=== PATIENT | female | born 1960 | race Caucasian/White ===

== ENCOUNTER 2016-06-14 07:28 | Inpatient (IN) | payer MEDICAID ==
[~2016-06-14 07:28] MED LIST: NAPROSYN500 M1 PO
[2016-06-14 08:17] LABS: BASO % 0.5 % (0-2); EOS % 2.6 % (0-7); EOSINOPHIL ABSOLUTE COUNT 0.2 tho/cmm (0.0-0.7); HCT-HEMATOCRIT 39.1 % (34.0-49.0); HGB-HEMOGLOBIN 13.6 gm/dl (12.0-15.5); IMMATURE GRANULOCYTES ABSOLUTE 0.01 tho/cmm (0-0.03); IMMATURE GRANULOCYTES PERCENT 0.2 % (0-0.3); LYMPH % 27.7 % (20-45); LYMPH ABSOLUTE COUNT 1.6 tho/cmm (0.8-4.5); MCH (MEAN CORPUSCULAR HGB) 34.3 pg (28.0-32.0); MCHC MEAN CORPUSCULAR HGB CONC 34.8 % (32.0-36.0); MCV (MEAN CELL VOLUME) 98.5 fl (82.0-96.0); MEAN PLATELET VOLUME 8.8 cmc (9.4-12.4); MONOCYTE ABSOLUTE COUNT 0.6 tho/cmm (0.0-1.2); NEUTROPHIL ABSOLUTE COUNT 3.4 tho/cmm (1.6-8.0); NEUTROPHIL-AUTOMATED 3.4 tho/cmm (1.6-8.0); PLATELET COUNT 133 tho/cmm (150-450); RED BLOOD COUNT 3.97 mil/cmm (4.00-5.20); RED CELL DISTRIBUTION WIDTH 14.2 % (12.4-16.4); WHITE BLOOD COUNT 5.7 tho/cmm (4.0-10.0)
[2016-06-14 08:21] LABS: URINE BILIRUBIN NEGATIVE (NEG); URINE BLOOD LARGE (NEG); URINE GLUCOSE (UA) NEGATIVE (NEG); URINE KETONE NEGATIVE (NEG); URINE LEUKOCYTE ESTERASE NEGATIVE (NEG); URINE NITRITE NEGATIVE (NEG); URINE PROTEIN NEGATIVE (NEG)
[2016-06-14 08:23] LABS: INR 1.2 INR (0.9-1.1); PROTHROMBIN TIME 13.9 SECONDS (9.0-13.6)
[2016-06-14 08:26] LABS: URINE APPEARANCE CLEAR; URINE COLOR YELLOW
[2016-06-14 08:34] LABS: ALB/GLOB RATIO 0.7 (0.8-2.0); ALBUMIN 3.2 g/dl (3.5-5.0); ALCOHOL (ETOH) 199 mg/dl (<10); ALKALINE PHOSPHATASE 159 U/L (33-138); ALT/SGPT 59 U/L (12-78); BLOOD UREA NITROGEN 2 mg/dl (6-24); CALCIUM 7.9 mg/dl (8.5-10.5); CARBON DIOXIDE-VENOUS 23 mmol/L (22-32); CHLORIDE 104 mmol/l (96-110); CREATININE 0.61 mg/dl (0.50-1.10); GLUCOSE 101 mg/dL (70-110); SODIUM 138 mmol/L (135-145); eGFR VALUE FOR BLACK >90 mL/Min
[2016-06-14 08:35] LABS: URINE EPITHELIAL CELLS 0-3 /[HPF] (0-10); URINE WBC 0 /[HPF] (0-5)
[2016-06-14 08:37] LABS: ANION GAP 15 mmol/L (0-20); AST/SGOT 143 U/L (10-40); MAGNESIUM 1.7 mg/dl (1.3-2.6); POTASSIUM 3.8 mmol/L (3.7-5.1)
[2016-06-14] MEDS ORDERED: LAMICTAL100 M2 PO (08:40)
[2016-06-14] MEDS ORDERED: AMBIEN5 M1 PO (08:40)
[2016-06-14] MEDS ORDERED: NEURONTIN300 M1 PO (08:41)
[2016-06-14] MEDS ORDERED: ZOLOFT50 M1 PO (08:41)
[2016-06-14] MEDS ORDERED: RISPERIDONE2 M1 PO (08:41)
[2016-06-14] MEDS ORDERED: BUSPIRONE HCL10 M2 PO (08:42)
[2016-06-14 08:44] LABS: ESR-ERYTHROCYTE SED RATE 29 mm/hr (0-30)
[2016-06-15 07:26] LABS: ALB/GLOB RATIO 0.6 (0.8-2.0); ALBUMIN 2.8 g/dl (3.5-5.0); ALKALINE PHOSPHATASE 140 U/L (33-138); ALT/SGPT 46 U/L (12-78); ANION GAP 12 mmol/L (0-20); AST/SGOT 98 U/L (10-40); BILIRUBIN,TOTAL 1.4 mg/dl (0-1.5); BLOOD UREA NITROGEN 2 mg/dl (6-24); CALCIUM 7.6 mg/dl (8.5-10.5); CARBON DIOXIDE-VENOUS 25 mmol/L (22-32); CHLORIDE 105 mmol/l (96-110); CHOLESTEROL 146 mg/dl (120-200); CREATININE 0.64 mg/dl (0.50-1.10); GLUCOSE 117 mg/dL (70-110); HDL CHOLESTEROL 70 mg/dl (40-60); LDL CHOLESTEROL 67 mg/dl (0-99); POTASSIUM 3.2 mmol/L (3.7-5.1); SODIUM 139 mmol/L (135-145); TRIGLYCERIDES 46 mg/dl (<149); VLDL 9 mg/dl (0-30); eGFR VALUE FOR BLACK >90 mL/Min
[2016-06-15] MEDS ORDERED: THIAMINE HCL100 M2 PO (14:38)
[2016-06-15] MEDS ORDERED: METOPROLOL TART25 M1 PO (14:38)
[2016-06-15] MEDS ORDERED: MULTIVITAMINS1 EAC6 PO (14:39)
[2016-06-15] MEDS ORDERED: ASPIRIN81 M1 PO (14:39)
== END 2016-06-15 16:37 | DRG 74 ==
LOC: EDMED 07:28 → EMR2 11:05 → 5EA 12:30
PROVIDERS: Emergency Medicine; Internal Medicine; ADMIT Hospitalist
DX: G62.1 Alcoholic polyneuropathy (principal); D69.6 Thrombocytopenia, unspecified; K70.30 Alcoholic cirrhosis of liver without ascites; K80.10 Calculus of gallbladder with chronic cholecystitis without obstruction; F10.129 Alcohol abuse with intoxication, unspecified; F31.9 Bipolar disorder, unspecified; Y90.6 Blood alcohol level of 120-199 mg/100 ml; J44.9 Chronic obstructive pulmonary disease, unspecified; K04.7 Periapical abscess without sinus; E87.6 Hypokalemia; I10 Essential (primary) hypertension; E66.9 Obesity, unspecified; Z68.38 Body mass index [BMI] 38.0-38.9, adult; Z72.0 Tobacco use; F41.9 Anxiety disorder, unspecified
CPT/HCPCS: A9577; G0480; G8978-GP-CH; G8979-GP-CH; G8980-GP-CH; G8987-GO-CH; G8988-GO-CH; G8989-GO-CH; J1650; J2060; J7030

== ENCOUNTER 2016-08-29 19:12 | Observation (INO) | payer MEDICAID ==
[~2016-08-29 19:12] MED LIST changes: +AMBIEN5 M1 PO; +ASPIRIN81 M1 PO; +BUSPIRONE HCL10 M2 PO; +LAMICTAL100 M2 PO; +METOPROLOL TART25 M1 PO; +MULTIVITAMINS1 EAC6 PO; +NEURONTIN300 M1 PO; +RISPERIDONE2 M1 PO; +THIAMINE HCL100 M2 PO; +ZOLOFT50 M1 PO
[2016-08-29] MEDS ORDERED: ASPIRIN EC325 M1 PO (19:23)
[2016-08-29] MEDS ORDERED: VITAMIN B-12250 MC2 PO (19:24)
[2016-08-29 20:37] LABS: BASO % 1.3 % (0-2); BASO ABSOLUTE COUNT 0.1 tho/cmm (0.0-0.2); EOS % 0.8 % (0-7); HCT-HEMATOCRIT 39.2 % (34.0-49.0); HGB-HEMOGLOBIN 13.6 gm/dl (12.0-15.5); IMMATURE GRANULOCYTES ABSOLUTE 0.01 tho/cmm (0-0.03); IMMATURE GRANULOCYTES PERCENT 0.2 % (0-0.3); LYMPH % 41.2 % (20-45); MCH (MEAN CORPUSCULAR HGB) 35.1 pg (28.0-32.0); MCHC MEAN CORPUSCULAR HGB CONC 34.7 % (32.0-36.0); MCV (MEAN CELL VOLUME) 101.3 fl (82.0-96.0); MEAN PLATELET VOLUME 8.9 cmc (9.4-12.4); MONO % 12.8 % (0-12); MONOCYTE ABSOLUTE COUNT 0.6 tho/cmm (0.0-1.2); NEUTROPHIL ABSOLUTE COUNT 2.1 tho/cmm (1.6-8.0); NEUTROPHIL-AUTOMATED 2.1 tho/cmm (1.6-8.0); NEUTROPHILS % 43.7 % (40-80); RED BLOOD COUNT 3.87 mil/cmm (4.00-5.20); RED CELL DISTRIBUTION WIDTH 16.2 % (12.4-16.4); WHITE BLOOD COUNT 4.8 tho/cmm (4.0-10.0)
[2016-08-29 20:38] LABS: URINE BILIRUBIN NEGATIVE (NEG); URINE BLOOD SMALL (NEG); URINE GLUCOSE (UA) NEGATIVE (NEG); URINE KETONE NEGATIVE (NEG); URINE LEUKOCYTE ESTERASE POSITIVE (NEG); URINE NITRITE NEGATIVE (NEG); URINE PROTEIN NEGATIVE (NEG); URINE SPECIFIC GRAVITY 1.005 (1.003-1.030)
[2016-08-29 20:41] LABS: INR 1.3 INR (0.9-1.1); PROTHROMBIN TIME 14.7 SECONDS (9.0-13.6)
[2016-08-29 20:42] LABS: URINE APPEARANCE HAZY; URINE COLOR YELLOW
[2016-08-29 20:45] LABS: URINE BACTERIA 4+; URINE EPITHELIAL CELLS RARE /[HPF] (0-10); URINE WBC 30-40 /[HPF] (0-5)
[2016-08-29 20:54] LABS: ALB/GLOB RATIO 0.6 (0.8-2.0); ALKALINE PHOSPHATASE 178 U/L (33-138); ALT/SGPT 34 U/L (12-78); ANION GAP 15 mmol/L (0-20); AST/SGOT 152 U/L (10-40); BILIRUBIN,TOTAL 1.5 mg/dl (0-1.5); BLOOD UREA NITROGEN 2 mg/dl (6-24); CARBON DIOXIDE-VENOUS 27 mmol/L (22-32); CHLORIDE 106 mmol/l (96-110); CREATININE 0.54 mg/dl (0.50-1.10); GLUCOSE 106 mg/dL (70-110); POTASSIUM 3.5 mmol/L (3.7-5.1); SODIUM 144 mmol/L (135-145); eGFR VALUE FOR BLACK >90 mL/Min
[2016-08-29 20:58] LABS: ALCOHOL (ETOH) 422 mg/dl (<10)
[2016-08-29 21:03] LABS: PLATELET COUNT 94 tho/cmm (150-450)
[2016-08-30 06:41] LABS: ANION GAP 14 mmol/L (0-20); BLOOD UREA NITROGEN 2 mg/dl (6-24); CALCIUM 7.4 mg/dl (8.5-10.5); CARBON DIOXIDE-VENOUS 25 mmol/L (22-32); CHLORIDE 109 mmol/l (96-110); CREATININE 0.53 mg/dl (0.50-1.10); GLUCOSE 113 mg/dL (70-110); MAGNESIUM 1.5 mg/dl (1.8-2.6); POTASSIUM 3.5 mmol/L (3.7-5.1); SODIUM 144 mmol/L (135-145); eGFR VALUE FOR BLACK >90 mL/Min
== END 2016-08-30 11:45 ==
LOC: EDMED 19:12 → EMR2 08-30 00:29 → CAR1 08-30 03:52
PROVIDERS: Internal Medicine; Nurse Practitioner Family; ADMIT Family Medicine
DX: F10.129 Alcohol abuse with intoxication, unspecified (principal); K70.9 Alcoholic liver disease, unspecified; G89.29 Other chronic pain; M54.9 Dorsalgia, unspecified; R79.89 Other specified abnormal findings of blood chemistry; F17.210 Nicotine dependence, cigarettes, uncomplicated; N39.0 Urinary tract infection, site not specified; F41.9 Anxiety disorder, unspecified; J45.909 Unspecified asthma, uncomplicated; J44.9 Chronic obstructive pulmonary disease, unspecified; E87.6 Hypokalemia; F31.9 Bipolar disorder, unspecified; Y90.8 Blood alcohol level of 240 mg/100 ml or more; Z79.82 Long term (current) use of aspirin; Z79.899 Other long term (current) drug therapy; Z91.018 Allergy to other foods; Z98.890 Other specified postprocedural states
CPT/HCPCS: G0378; G0480; J2060; J7030